=== PATIENT | female | born 1960 | race Caucasian/White ===

== ENCOUNTER → 2017-06-13 | Outpatient (CLI) | payer OTHER ==
[~2017-06-13] MED LIST: ASCO-182 PO; BLAC160C3 PO; CALC1TAB58 PO; CELE-1 PO; COSAMIN DS CAP1 EACH PO; FERR15DR22 PO; FERR325T24 PO; FOLI-59 PO; GLUC-198 PO; LYSI500T PO; OMEP-125 PO; PNEI IJ; VITA150T2 PO
[2017-06-13 10:11] LABS: PLATELET COUNT, AUTOMATED 212 K/uL (150-450)
[2017-06-13 10:25] LABS: LDL CHOLESTEROL 129 mg/dl
== END ==
LOC: LAB 09:28
PROVIDERS: ATTEND Nurse Practitioner Family
DX: E78.5 Hyperlipidemia, unspecified (principal); D72.829 Elevated white blood cell count, unspecified
CPT/HCPCS: 82040; 82247; 82310; 82374; 82435; 82465; 82565; 82947; 83718; 84075; 84132; 84155; 84295; 84450; 84460; 84478; 84520; 85025

== ENCOUNTER → 2018-04-02 | Outpatient (REF) ==
[~2018-04-02] MED LIST changes: +BUPR-126 PO; +BUPR-472 PO; -FERR15DR22 PO; +FERR15DR3 PO
[2018-04-02 12:20] LABS: LDL CHOLESTEROL 165 mg/dl
== END ==
DX: Z02.9 Encounter for administrative examinations, unspecified (principal)

== ENCOUNTER → 2018-07-08 | Outpatient (CLI) | payer OTHER ==
[~2018-07-08] MED LIST changes: -FERR15DR3 PO; +FERR15DR4 PO; +NICO1PAT45 TD; +ROSU10TA5 PO
[2018-07-08 11:04] LABS: LDL CHOLESTEROL 76 mg/dl
== END ==
LOC: LAB 09:13
PROVIDERS: ATTEND Nurse Practitioner Family
DX: E78.5 Hyperlipidemia, unspecified (principal)
CPT/HCPCS: 36415; 82040; 82247; 82310; 82374; 82435; 82465; 82565; 82947; 83718; 84075; 84132; 84155; 84295; 84450; 84460; 84478; 84520